=== PATIENT | female | born 1990 | race Caucasian/White ===

== ENCOUNTER 2017-04-05 08:05 | Emergency (ER) | payer MEDICAID ==
--- NOTE | 2017-04-05 08:27 | Emergency Department Record ---
History of Present Illness - General Chief complaint: OB/Uterine Contract/ Stated complaint: AND CRAMPING Time Seen by Provider: 04/05/17 08:22 Source: Patient Mode of Arrival: Ambulatory Limitations: No limitations Travel/Exposure to [facility] [place] Within 21 Days of Symptoms: No - History of Present Illness Initial comments: 26 yo female presents to ED with a CC of pelvic cramping and a small amount of spotting yesterday morning. Patient reports that she believed her symptoms were related to her menses (LMP was approximately 4 weeks ago), however patient reports taking a test this morning which was positive prompting visit to ED this morning. Patient denies health problems at her baseline. MD Complaint: Abdominal pain, Vaginal bleeding Onset/Timin -: Days(s) Location: Pelvis Radiation: Back Severity scale (1-10): 7 Quality: Burning Consistency: Constant Improves with: None Worsens with: None Associated symptoms: Vaginal bleeding Vaginal bleeding: Light 02/25/17 LMP (females 10-50): 1 month ago Pre-jaxon care: None - Related Data : 4 Para: 3 Ab: 2 Home Medications Medication Instructions Recorded Confirmed Last Taken No Home Med [NO HOME MEDS] 07/14/15 04/05/17 Unknown Allergies Allergy/AdvReac Type Severity Reaction Status Date / Time No Known Drug Allergies Allergy Unverified 10/25/16 18:16 Review of Systems Constitutional: Denies: Chills, Fever, Malaise, Night sweats Eyes: Denies: Eye discharge, Eye pain ENT: Denies: Congestion, Ear pain, Epistaxis Respiratory: Denies: Cough, Dyspnea Cardiovascular: Denies: Chest pain, Dyspnea on exertion Endocrine: Denies: Fatigue, Heat or cold intolerance Gastrointestinal: Reports: Abdominal pain. 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 : 4 Para: 3 A: 2 - RESPIRATORY Hx Respiratory Disorders: No - CARDIOVASCULAR Hx Cardio Disorders: No - NEURO Hx Neuro Disorders: No - GI Hx GI Disorders: No - Hx Genitourinary Disorders: No - ENDOCRINE Hx Endocrine Disorders: No - MUSCULOSKELETAL Hx Musculoskeletal Disorders: No - PSYCH Hx Psych Problems: No - HEMATOLOGY/ONCOLOGY Hx Hematology/Oncology Disorders: No Family Medical History Any Significant Family History?: Yes Hx Heart Disease: Grandparents Hx HTN: Grandparents *HTN Comment: uncle Hx Kidney Disease: Mother Physical Exam - General General Appearance: Alert, Oriented x3, Cooperative, No acute distress Limitations: No limitations - Head Head exam: Atraumatic, Normocephalic, Normal inspection Head exam detail: negative: Abrasion, Contusion, Whittaker's sign, General tenderness, Hematoma, Laceration - Eye Eye exam: Normal appearance. negative: Conjunctival injection, Periorbital swelling, Periorbital tenderness, Scleral icterus - ENT Ear exam: negative: Auricular hematoma, Auricular trauma Nasal Exam: negative: Active bleeding, Discharge, Dried blood, Foreign body Mouth exam: negative: Drooling, Laceration, Muffled voice, Tongue elevation - Neck Neck exam: Normal inspection. negative: Meningismus, Tenderness - Respiratory Respiratory exam: Normal lung sounds bilaterally. negative: Rales, Respiratory distress, Rhonchi, Stridor - Cardiovascular Cardiovascular Exam: Regular rate, Normal rhythm, Normal heart sounds - GI/Abdominal GI/Abdominal exam: Soft, Tenderness (MIld supra-pubic tenderness on examination) . negative: Rebound, Rigid - Rectal Rectal exam: Deferred - exam: Deferred - Extremities Extremities exam: Normal inspection. negative: Calf tenderness, Pedal edema, Tenderness - Back Back exam: Denies: CVA tenderness (R), CVA tenderness (L) - Neurological Neurological exam: Alert, Normal gait, Oriented X3 - Psychiatric Psychiatric exam: Normal affect, Normal mood - Skin Skin exam: Normal color. negative: Abrasion Type of lesion: negative: abrasion Course Vital Signs 04/05/17 08:15 Temperature 98.3 F Pulse Rate [ 110 H Pulse Ox Probe] Respiratory 18 Rate Blood Pressure 114/65 [Left Arm] Pulse Ox 100 - Reevaluation(s) Reevaluation #1: 04/05/17 08:40 Urine test is positive, BHCG and US ordered for further evaluation of possible ectopic. 04/05/17 12:06 Reevaluation #2: 04/05/17 09:46 Labs reviewed, [facility] [place] [id number], labs are otherwise grossly unremarkable for an acute process. Reevaluation #3: 04/05/17 10:47 US Pelvis: pole demonstrated within the uterus, implantation bleeding is present, no heart tones are present. Patient was updated on all results, will refer to Dr. Vasquez for OB follow-up and repeat BHCG in 48-72 hours. Rx given to patient for repeat blood test. Patient otherwise appears stable for discharge at this time with follow-up in 5- 7 days. Medical Decision Making - Lab Data Result diagrams: 04/05/17 08:49 04/05/17 08:49 Disposition Disposition: Discharge Clinical Impression: Vaginal bleeding in Qualifiers: Trimester: first trimester Qualified Code(s): O46.91 - Antepartum hemorrhage, unspecified, first trimester Disposition: Home, Self-Care Condition: (2) Stable Instructions: Abdominal Pain in (ED) Additional Instructions: Return to ED if your symptoms worsen or if you have any concerns. Follow-up with Dr. Vasquez in 5-7 days as directed. Repeat BHCG in 48-72 hours. Start vitamins daily as well. Referrals: INNA VASQUEZ [DOCTOR OF OSTEOPATH] - [facility] [Provider Group] Forms: Patient Portal Access Time of Disposition: 10:53
[2017-04-05 08:34] LABS: URINE APPEARANCE CLEAR; URINE BILIRUBIN NEGATIVE (NEGATIVE); URINE BLOOD TRACE-I (NEGATIVE); URINE COLOR YELLOW; URINE GLUCOSE (UA) NEGATIVE (NEGATIVE); URINE KETONE NEGATIVE (NEGATIVE); URINE LEUKOCYTE ESTERASE NEGATIVE (NEGATIVE); URINE NITRITE NEGATIVE (NEGATIVE); URINE PROTEIN NEGATIVE (NEGATIVE); URINE UROBILINOGEN 0.2 E.U./dL (0.20 - 1.00)
[2017-04-05 08:40] LABS: URINE BACTERIA NONE SEEN; URINE EPITHELIAL CELLS 0 - 2 (FEW); URINE RBC 0 - 2 (NONE SEEN); URINE WBC NONE SEEN (0-2/hpf)
[2017-04-05] MEDS: ACETAMINOPHEN 325 MG TAB PO ONE (08:51)
[2017-04-05 08:56] LABS: BASO % 0.7 % (0-6); EOS % 0.8 % (0-6); GRAN % 65.6 % (47-80); HEMATOCRIT 38.3 % (35.0-47.0); HEMOGLOBIN 12.9 gm/dl (11.6-16.0); LYMPH % 24.1 % (16-45); MEAN CELL VOLUME 86.1 fl (81-97); MEAN CORPUSCULAR HGB CONC 33.7 g/dl (32-36); MEAN PLATELET VOLUME 11.7 fl (7.4-10.4); MONO % 8.8 % (0-9); PLATELET COUNT 202 K/uL (130-400); RED BLOOD COUNT 4.45 M/uL (3.80-5.40); RED CELL DISTRIBUTION WIDTH 12.5 % (11.5-14.5); WHITE BLOOD COUNT W/O DIFF 6.1 K/uL (4.2-12.2)
[2017-04-05 09:17] LABS: BLOOD UREA NITROGEN 7 mg/dL (7-17); CREATININE 0.6 mg/dL (0.52-1.04); EST GLOMERULAR FILTRATION RATE > 60 ml/min; GLUCOSE,RANDOM 91 mg/dL (70-110)
[2017-04-05 09:18] LABS: ALB/GLOB RATIO 1.7 (1.1-1.8); ALBUMIN 3.9 gm/dL (3.5-5.0); ALKALINE PHOSPHATASE 51 U/L (38-126); ALT/SGPT 18 U/L (9-52); AST/SGOT 17 U/L (14-36); TOTAL PROTEIN 6.2 gm/dL (6.3-8.2)
--- NOTE | 2017-04-08 14:18 | ULTRASOUND REPORT ---
EXAM: FIRST TRIMESTER ULTRASOUND HISTORY: PAIN, CRAMPING. TECHNIQUE: Transvaginal and transabdominal sonographic evaluation of the pelvis was performed using acosta scale imaging with the addition of color flow and spectral analysis. FINDINGS: The uterus measures 9.3 x 3.8 x 5.1 cm. There is an intrauterine gestational sac with yolk sac visualized. There is a suspected pole measuring 0.17 cm. No heart tones are appreciated. There is likely a large implantation bleed. Continued short term follow-up imaging is recommended. The right ovary measures 3.3 x 5.4 x 1.4 cm. The left ovary measures 2.4 x 3.1 x 3.1 cm. There are small follicles in both ovaries. There is normal arterial and venous flow to both ovaries. IMPRESSION: THERE APPEARS TO BE A SINGLE LIVE INTRAUTERINE WITH YOLK SAC AND POSSIBLE POLE VISUALIZED. NO HEART TONES ARE APPRECIATED AT THIS TIME. THERE IS A LARGE APPARENT SUBCHORIONIC IMPLANTATION BLEED PRESENT. CONTINUED FOLLOW-UP IMAGING IS RECOMMENDED. JOB NUMBER: [id number] [facility]
== END 2017-04-05 11:03 | disposition home or self-care (01) ==
LOC: ER 08:05
DX: O20.9 Hemorrhage in early pregnancy, unspecified (principal); Z3A.00 Weeks of gestation of pregnancy not specified
CPT/HCPCS: 76801; 76817; 80053; 81001; 81025; 84702; 85025; 99283; 99284